=== PATIENT | female | born 1985 | race Caucasian/White ===

== ENCOUNTER → 2020-04-21 10:18 | Outpatient (CLI) | payer OTHER, SELFPAY ==
[2020-04-21 11:06] LABS: Hemoglobin 11.6 g/dL (12.0-16.0)
== END ==
PROVIDERS: PCP Family Medicine; Referring Provider Family Medicine; Visit Provider Family Medicine
DX: Z3A.26 26 weeks gestation of pregnancy (principal)
CPT/HCPCS: 36415; 85014; 85018

== ENCOUNTER → 2020-06-16 12:49 | Outpatient (CLI) | payer OTHER, SELFPAY ==
[2020-06-16 14:59] LABS: Hematocrit 33.8 % (36-46)
[2020-06-16 15:32] LABS: GTT (PREG) 1 Hour PP 50gm Dose 117 mg/dL (76-139)
== END ==
PROVIDERS: PCP Family Medicine; Referring Provider Family Medicine; Visit Provider Family Medicine
DX: D64.9 Anemia, unspecified (principal); Z3A.26 26 weeks gestation of pregnancy
CPT/HCPCS: 36415; 82950; 85014

== ENCOUNTER → 2020-06-23 13:31 | Outpatient (CLI) | payer OTHER, SELFPAY ==
--- NOTE | 2020-06-23 13:31 | DI.US.S_ITS ---
PROCEDURE: US OB LIMITED INDICATIONS: INCREASED SIZE FOR DATES OUTSIDE/PRIOR DATING DATA: Last menstrual period (LMP): 10/12/19. LMP-based estimated date of delivery (STEPHAN): 07/18/20. First dating scan (date and location): 12/06/19 Estimated date of delivery (STEPHAN) from first dating scan: 07/24/20. TECHNIQUE: Real-time scanning was performed of the fetus, with image documentation and biometric measurements. Endovaginal scanning: Not needed COMPARISON: None. FINDINGS: General: A single living intrauterine gestation is present. Presentation: Vertex. Placenta: Placental position is anterior , without previa. Amniotic fluid index: 14.5 cm, normal range is 5-24 cm. heart rate: 155 beats per minute. Maternal cervical canal: 4.0 cm long. Normal lower limit is 2.5 cm. biometrics: Biparietal diameter: 8.8 cm, 35 weeks 3 days Head circumference: 31.5 cm, 35 weeks 3 days Abdominal circumference: 31.4 cm, 35 weeks 2 days Femur length: 6.9 cm, 35 weeks 3 days Estimated gestational age from initial scan: 35 weeks 4 days. Composite gestational age from present scan: 35 weeks 3 days Estimated weight and percentile: 2650 g, 42nd percentile Measurement variability for biometric dating: +/- 7 days from 14 weeks to 15 weeks 6 days gestation, +/- 10 days from 16 weeks to 21 weeks 6 days gestation, +/- 2 weeks from 22 weeks to 27 weeks 6 days gestation, +/- 3 weeks for 28 weeks gestation or later. weight reference: 4500 g or EFW >90/95% is considered macrosomia or large for gestational age. EFW <10% is small for gestational age. EFW 5% or less is considered intra-uterine growth restriction. Other: Not applicable. IMPRESSION: Appropriate interval growth, no sign of macrosomia. Dictated by: Kris Call M.D. on 06/23/2020 at 14:44 Approved by: Kris Call M.D. on 06/23/2020 at 14:52
== END ==
PROVIDERS: PCP Family Medicine; Referring Provider Family Medicine; Visit Provider Family Medicine
DX: Z36.88 Encounter for antenatal screening for fetal macrosomia (principal); Z3A.35 35 weeks gestation of pregnancy
CPT/HCPCS: 76815

== ENCOUNTER → 2020-06-26 15:06 | Outpatient (CLI) | payer OTHER, SELFPAY ==
[2020-06-27 16:55] LABS: Strep Grp B PCR NEG for Grp B Strep
== END ==
PROVIDERS: PCP Family Medicine; Visit Provider Family Medicine
DX: Z34.83 Encounter for supervision of other normal pregnancy, third trimester (principal); Z3A.36 36 weeks gestation of pregnancy
CPT/HCPCS: 87653

== ENCOUNTER 2020-07-24 08:42 | Outpatient (CLI) | payer OTHER, SELFPAY ==
--- NOTE | 2020-07-24 13:13 | PM.OBTRLD ---
Visit Information Visit Information Date of evaluation: 07/24/20 Primary OB Provider: Gagan Chapin On-call OB Provider: Ilene Kessler Reason for Evaluation: Yes rule out labor Vital Signs Vital Signs: Temperature 98.6? blood pressure 121/69 heart rate 78 PFSH Medical History (Updated 07/24/20 @ 13:15 by Ilene Kessler DO) Constipation Surgical History H/O colonoscopy (~2004) History of wisdom tooth extraction (~2016) Family History (Updated 04/07/20 @ 10:30 by Marianela Wilkerson RN) Mother Hypertension Father Unknown whether patient has any health problems Family estrangement Grandfather Cancer Stomach cancer Grandmother Stroke Hypertension Grandfather Unknown whether patient has any health problems Family estrangement Grandmother Unknown whether patient has any health problems Family estrangement Family/Other Diabetes mellitus Hypertension Social History marital status: household members: spouse lives independently: Yes pets and animals: Yes (X 4 dogs and Guinea Pig) education level: college (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 needs: No Smoking Status: Former smoker (Stopped 15 years ago) Tobacco: How many years used: 3 second hand exposure: No alcohol intake: former (pre- : occasional ) substance use type: does not use Evaluation Evaluation Baseline heart rate: 120 Variability: Moderate (11-25) monitor accelerations: Present monitor decelerations: Absent Contraction Frequency (minutes): 3 Uterine Contraction Intensity: Moderate Category of Tracing: Reactive Cervical dilation (cm): 1 Cervical effacement (%): 75 station: -2 Diagnosis, Plan/Disposition Final Diagnosis (1) 40 weeks gestation of : Status: Acute Plan/Disposition Plan: 35 yo at 40 weeks with regular contractions. SVE similar to last check in clinic. Patient will walk for 1-2 hours and return to the center. OB Disposition: home
== END 2020-07-24 09:56 | disposition home or self-care (01) ==
LOC: LABOR 09:53 → OB 07-25 11:33
PROVIDERS: PCP Family Medicine; Referring Provider Family Medicine; Visit Provider Family Medicine
DX: Z34.03 Encounter for supervision of normal first pregnancy, third trimester (principal); Z3A.40 40 weeks gestation of pregnancy
CPT/HCPCS: 59025; G0378; G0379

== ENCOUNTER 2020-07-24 13:42 | Outpatient (CLI) | payer OTHER, SELFPAY | END 2020-07-24 14:35 | disposition home or self-care (01) | LOC: LABOR 14:10 → OB 07-25 11:33 | PROVIDERS: PCP Family Medicine; Referring Provider Family Medicine; Visit Provider Family Medicine | DX: Z34.03 Encounter for supervision of normal first pregnancy, third trimester (principal); Z3A.40 40 weeks gestation of pregnancy | CPT/HCPCS: 59025; G0378; G0379 ==

== ENCOUNTER 2020-07-25 10:53 | Inpatient (IN) | payer OTHER, SELFPAY ==
[2020-07-25] MEDS: LACTATED RINGERS 1,000 ML 100 ML IV ×3 (12:00→17:05)
[2020-07-25 12:16] LABS: Add Manual Diff / Slide Review NO; Basophils Absolute Auto 100 /uL (0-100); Basophils Percent Auto 0.8 % (0-2); Eosinophils Absolute Auto 0 /uL (0-450); Eosinophils Percent Auto 0.3 % (2-4); Hematocrit 36.5 % (36-46); Hemoglobin 12.7 g/dL (12.0-16.0); Lymphocytes Absolute Auto 1300 /uL (1100-4500); Lymphocytes Percent Auto 9.3 % (25-40); Mean Corpuscular HGB Conc 34.7 % (30-36); Mean Corpuscular Hemoglobin 31.4 PG (26-34); Mean Corpuscular Volume 90.4 fL (80-100); Monocytes Absolute Auto 800 /uL (0-900); Neutrophils Absolute Auto 11200 /uL (1500-7000); Neutrophils Percent Auto 83.6 % (50-75); Platelet Count 219 X10^3/uL (150-400); Red Blood Cell Count 4.04 X10^6/uL (4.0-5.2); Red Cell Distribution Width 13.1 % (11.6-14.8); White Blood Cell Count 13.4 X10^3/uL (4.5-11.0)
[2020-07-25 12:30] LABS: COVID19 -Nasal RAPID Negative (Negative)
--- NOTE | 2020-07-25 12:59 | P.HPOB_ITS ---
OB HPI Date/Time Date of admission: 07/25/20 Date Patient Seen: 07/25/20 Time Patient Seen: 12:59 History of Present Condition Chief complaint: NST : 2 Para: 0 Estimated Date of Delivery: 07/24/20 Estimated Gestational Age (weeks): 40-1/7 Narrative: Alanna Yarbrough is a 35 year old female G2 para 0 with an estimated due date 07/24/2020 consistent with ultrasound and LMP. Patient comes in to the labor and delivery floor in active labor. Patient states she has been rosi over the last 24-48 hours. Patient was in the center a couple of times yesterday with contractions intermittently and now have progressed to more regular contractions with uncomfortableness. Patient has had no fevers chills no loss of fluid. She has had good baby movement. Patient has had no vaginal discharge or bleeding. She has been hydrating well but not eating a whole lot. She says her contractions are low in her pelvis and around her back. There moderate to severe and comfortable level. Patient has had no significant worsening of her edema no headaches no blurry vision. History of Present care: good care Dating criteria: LMP confirmed by 1st trimester US Obstetrical complications: none Medical complications: none Preadmission Labs Blood type: O (+) positive -: Antibody screen: negative, Cystic fibrosis screen: unknown, GBS status: negative, HBsAG: negative, HIV: negative, HSV 1: unknown, HSV 2: unknown and RPR/VDLR: negative -: Chlamydia screen: not detected and Gonorrhea screen: not detected HCAB: negative Integrated screen: Within normal limits 1 hr GTT: 117 Narrative: COVID negative Evaluation Evaluation Laboratory results: Laboratory Tests 07/25/20 07/25/20 11:49 11:49 WBC 13.4 H RBC 4.04 Hgb 12.7 Hct 36.5 MCV 90.4 MCH 31.4 MCHC 34.7 RDW 13.1 Plt Count 219 Neut % (Auto) 83.6 H Lymph % (Auto) 9.3 L [place] % (Auto) 6.0 Eos % (Auto) 0.3 L Baso % (Auto) 0.8 Neut # (Auto) 44417 H Lymph # (Auto) 1300 [place] # (Auto) 800 Eos # (Auto) 0 Baso # (Auto) 100 COVID-19 PCR Negative PFSH Medical History Constipation Surgical History H/O colonoscopy (~2004) History of wisdom tooth extraction (~2016) Family History Mother Hypertension Father Unknown whether patient has any health problems Family estrangement Grandfather Cancer Stomach cancer Grandmother Stroke Hypertension Grandfather Unknown whether patient has any health problems Family estrangement Grandmother Unknown whether patient has any health problems Family estrangement Family/Other Diabetes mellitus Hypertension Social History marital status: household members: spouse lives independently: Yes pets and animals: Yes (X 4 dogs and Guinea Pig) education level: college (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 General: Alert no apparent distress. Affect is appropriate. Rosi it is uncomfortable. HEENT: Neck is supple without lymphadenopathy pupils equal round and reactive. Cardio: S1-S2 regular rate and rhythm. Respiratory: Lungs clear to auscultation. Abdomen: Gravid. Extremities: Normal deep tendon reflexes trace edema. [place]: Rosi every 5 minutes 60 sec contraction moderate in intensity. heart tones: Category 1 tracing heart tones 130 Objective Labs Result Diagrams: 07/25/20 11:49 Labs: Laboratory Results - last 24 hr 07/25/20 07/25/20 11:49 11:49 WBC 13.4 H RBC 4.04 Hgb 12.7 Hct 36.5 MCV 90.4 MCH 31.4 MCHC 34.7 RDW 13.1 Plt Count 219 Neut % (Auto) 83.6 H Lymph % (Auto) 9.3 L [place] % (Auto) 6.0 Eos % (Auto) 0.3 L Baso % (Auto) 0.8 Neut # (Auto) 37878 H Lymph # (Auto) 1300 [place] # (Auto) 800 Eos # (Auto) 0 Baso # (Auto) 100 COVID-19 PCR Negative Assessment and Plan Assessment and Plan Assessment and Plan narrative: 35-year-old G2 para 0 40 weeks 1 day gestational age consistent with LMP and ultrasound comes in today with active labor. Patient's contractions are uncomfortable. Vital signs are stable and patient is afebrile. Patient is intact without loss of amniotic fluid. Her GBS status is negative. Patient's cervical exam shows she has 5-6 cm 90% effaced -2 station. Patient is requesting epidural. care orders were written for. Patient will have a COVID test hemoglobin hematocrit be given an IV fluid bolus. Once these tests are back. Will proceed with an epidural. consents were obtained and signed orders were written for. Proceed with expectant management.
[2020-07-25] MEDS: FENT 2MCG/ML BUPIV 0.125% EPI 200 MCG/100 ML PLAST..BAG 12 MCG EPIDURAL (13:39)
[2020-07-25 14:31] VITALS: BP 109/67
[2020-07-25] MEDS: OXYTOCIN PREMIX 30 UNIT/500 ML PLAST..BAG IV (14:44)
--- NOTE | 2020-07-25 17:55 | PM.OBPNLAB ---
Date/Time Date Patient Seen: 07/25/20 Time Patient Seen: 17:00 Pain Control Pain control: tolerating well and epidural Pelvic Exam Dilation (cm): 9 station: -1 Amniotic membrane status: Leaking Contractions Contractions on admission: regular Monitor mode: External Pitocin rate (mU/min): 6 Contraction frequency (min): 4 Contraction duration (min): 60 Contraction pattern: Regular Status status: Category l Monitor Accelerations: Present Monitor Decelerations: Absent Monitor Variability: Moderate Assessment and Plan Assessment: active labor Plan: continuous present management Comments: Doing well. Made good progress. Decreased Pitocin is contractions are a little bit close together. Category 1 heart tracing. Continue expectant management
--- NOTE | 2020-07-25 21:40 | PM.OBPNLAB ---
Date/Time Date Patient Seen: 07/25/20 Time Patient Seen: 21:40 Pain Control Pain control: tolerating well Pelvic Exam Dilation (cm): 10 Effacement (%): 100 station: +1 Amniotic membrane status: Leaking Contractions Monitor mode: External Contraction frequency (min): 4 Contraction pattern: Regular Status status: Category ll Monitor Accelerations: Present Monitor Decelerations: Variable Monitor Variability: Moderate Assessment and Plan Assessment: active labor Comments: Continue to push. Monitor closely for baby descent. heart tones 130-141 tends with pushing. Hopefully we continue to make good progress. If not may have to use vacuum or forceps.
--- NOTE | 2020-07-25 23:09 | PM.PROC.1 ---
Procedures Date/Time Date of procedure: 07/25/20 Time of procedure: 23:09 General Procedure description: Delivery summary Stage I of labor. Approximately 8 hours. Patient presented to Labor and delivery floor rosi. Dilated 4-5 cm -2 station intact. Patient had normal vital signs and temperature when she came in. Patient's contractions were moderate to severe in discomfort and patient requesting epidural. Vital signs were stable afebrile. labs chart and ultrasounds were reviewed. During stage I of labor patient made good progress of labor. She received epidural with great anesthetic results. She had Pitocin augmentation. She had category 1 tracing during most of stage I of labor with some occasional says it is category 2 tracing. Patient the had 1 episode where heart rate dropped after position changes a at 9 cm. Where the Pitocin was. She was given a fluid bolus and continue non-rebreather oxygen. Baby's heart rate rebounded afterwards and did well. Patient's GBS status was negative. She had a Alfredo catheter placed after the epidural was placed. Patient made good progress from 4-9 cm. Stage II of labor approximately 2 hours. Category 1 and category 2 tracing during stage II. At pushing patient made good descent through the canal from -1 to +3 station. At the delivery of the baby's head. Baby was delivered spontaneously in the occiput posterior position. Baby had no nuchal cord was delivered immediately after without any shoulder difficulty. Baby was placed on mother's abdomen had spontaneous cry. Delayed cord clamping was done. Cord was cut and transected by father was three-vessel cord. Mom had good anesthetic results during stage II of labor. Patient has some mild Pitocin to help with contractions during stage II. There was some variable decelerations. And early decelerations. Stage III of labor approximately 5 minutes. Patient delivered intact placenta with three-vessel cord. Patient had a small second-degree midline tear that was repaired in the normal fashion with the good results. Afterwards mom and baby were resting comfortably. Expectant of the cervix showed no cervical laceration. Bleeding was anticipated at 200 cc. Mom was given Pitocin through the IV. To complete the 20 units bag.
[2020-07-26] MEDS: LANOLIN OINT 7 GM 1 APPLIC TOP (03:07)
[2020-07-26] MEDS: DERMOPLAST SPRAY 20% 60 ML 1 SPRAY TOP (03:07)
[2020-07-26] MEDS: IBUPROFEN 600 MG TABLET PO ×4 (03:08→23:28)
[2020-07-26 06:20] LABS: Hematocrit 30.9 % (36-46); Hemoglobin 10.6 g/dL (12.0-16.0)
--- NOTE | 2020-07-26 08:54 | PM.PN.1 ---
Subjective Subjective Date Patient Seen: 07/26/20 Time Patient Seen: 08:54 Interval history: day 1. Status post vaginal delivery. Patient doing well. Was able to ambulate and shower. Bleeding as anticipated hemoglobin hematocrit is stable. Tolerating diet. Vital signs are stable. No lightheaded and dizziness. No fever no chills. Exam Narrative Exam Narrative: General: Alert no apparent distress. Affect is appropriate. . HEENT: Neck is supple without lymphadenopathy pupils equal round and reactive. Cardio: S1-S2 regular rate and rhythm. Respiratory: Lungs clear to auscultation. Abdomen: Uterus firm. Extremities: Normal deep tendon reflexes trace edema. Objective Labs Result Diagrams: 07/26/20 06:05 Labs: Laboratory Results - last 24 hr 07/25/20 07/25/20 07/25/20 11:49 11:49 11:49 WBC 13.4 H RBC 4.04 Hgb 12.7 Hct 36.5 MCV 90.4 MCH 31.4 MCHC 34.7 RDW 13.1 Plt Count 219 Neut % (Auto) 83.6 H Lymph % (Auto) 9.3 L [place] % (Auto) 6.0 Eos % (Auto) 0.3 L Baso % (Auto) 0.8 Neut # (Auto) 91026 H Lymph # (Auto) 1300 [place] # (Auto) 800 Eos # (Auto) 0 Baso # (Auto) 100 COVID-19 PCR Negative Blood Type O Positive Antibody Screen Negative 07/26/20 06:05 WBC RBC Hgb 10.6 L Hct 30.9 L MCV MCH MCHC RDW Plt Count Neut % (Auto) Lymph % (Auto) [place] % (Auto) Eos % (Auto) Baso % (Auto) Neut # (Auto) Lymph # (Auto) [place] # (Auto) Eos # (Auto) Baso # (Auto) COVID-19 PCR Blood Type Antibody Screen [facility] Medical History Constipation Surgical History H/O colonoscopy (~2004) History of wisdom tooth extraction (~2016) Family History Mother Hypertension Father Unknown whether patient has any health problems Family estrangement Grandfather Cancer Stomach cancer Grandmother Stroke Hypertension Grandfather Unknown whether patient has any health problems Family estrangement Grandmother Unknown whether patient has any health problems Family estrangement Family/Other Diabetes mellitus Hypertension Social History marital status: household members: spouse lives independently: Yes pets and animals: Yes (X 4 dogs and Guinea Pig) education level: college (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 Status post vaginal delivery. Pain well controlled. Continue with Tylenol and ibuprofen. Bowels. Continue with Colace stool softener. Bleeding hemoglobin hematocrit stable. Uterus is firm. As anticipated. Diet and patient tolerating diet. Plan. Ambulate DC Hep-Lock.
[2020-07-26] MEDS: DOCUSATE 100 MG CAPSULE PO ×2 (10:11→20:15)
[2020-07-26] MEDS: PRENATAL VIT,CALC/IRON/FOLIC 1 TABLET 1 TAB PO (10:11)
[2020-07-26 20:14] VITALS: TEMP 37.4
[2020-07-26] MEDS: HYDROCODONE/ACET 5/325 TABLET 1 TAB PO ×2 (20:14→23:29)
[2020-07-27 05:19] VITALS: TEMP 36.6
[2020-07-27] MEDS: HYDROCODONE/ACET 5/325 TABLET 1 TAB PO (05:19)
[2020-07-27 05:49] VITALS: TEMP 36.6
[2020-07-27] MEDS: PRENATAL VIT,CALC/IRON/FOLIC 1 TABLET 1 TAB PO (08:55)
[2020-07-27] MEDS: ACETAMINOPHEN 325 MG TABLET 650 MG PO (08:55)
[2020-07-27] MEDS: DOCUSATE 100 MG CAPSULE PO (08:55)
[2020-07-27] MEDS: IBUPROFEN 600 MG TABLET PO (08:55)
--- NOTE | 2020-07-27 09:24 | PM.DS.1 ---
History of Present Illness History of Present Illness Chief complaint: NST Discharge Providers Provider Date of admission: 07/25/20 10:53 Discharge Date: 07/27/20 Primary care physician: Gagan Chapin MD Consults: 07/26/20 23:06 Consult to Health Insurance Agent Routine Comment: Discharge provider: Gagan Chapin MD Summary Hospital Course Discharge Diagnosis: Delivery of viable male Hospital Course: Routine post delivery care Exam Vital Signs (past 8 hours): - 07/27/20 05:19 07/27/20 05:49 Temperature 97.9 F 97.9 F Narrative Exam Narrative: General: Alert no apparent distress. Affect is appropriate. Greg it is uncomfortable. HEENT: Neck is supple without lymphadenopathy pupils equal round and reactive. Cardio: S1-S2 regular rate and rhythm. Respiratory: Lungs clear to auscultation. Abdomen: Incision clean dry and intact. Extremities: Normal deep tendon reflexes trace edema. Objective Labs Result Diagrams: 07/26/20 06:05 [facility] Medical History Constipation Surgical History H/O colonoscopy (~2004) History of wisdom tooth extraction (~2016) Family History Mother Hypertension Father Unknown whether patient has any health problems Family estrangement Grandfather Cancer Stomach cancer Grandmother Stroke Hypertension Grandfather Unknown whether patient has any health problems Family estrangement Grandmother Unknown whether patient has any health problems Family estrangement Family/Other Diabetes mellitus Hypertension Social History marital status: household members: spouse lives independently: Yes pets and animals: Yes (X 4 dogs and Guinea Pig) education level: college (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 needs: No Smoking Status: Never smoker Tobacco: How many years used: 3 second hand exposure: No alcohol intake: former (pre- : occasional ) substance use type: does not use Discharge Plan Discharge Plan Patient Disposition: Home Discharge orders & Medications Prescriptions: New docusate sodium [DOK] 100 mg Capsule 100 mg PO BID Qty: 20 RF: 0 ibuprofen 600 mg Tablet 600 mg PO Q6HR PRN (Reason: Fever/Mild Pain (1-3)) Qty: 30 RF: 0 lactulose 10 gram packet 20 g PO BID Qty: 30 RF: 3 Continued prenat.vits,maricruz,[id number] Tablet 1 tab PO DAILY RF: 0 Follow up/Referrals: Gagan Chapin MD [Primary Care Provider] - Diet/Activity/Treatments Diet: Diet as Tolerated Visit Report/Discharge Packet Visit Report Forms: Patient Portal/API Discharge Data Primary Care Provider: Gagan Chapin
[2020-07-27 09:45] VITALS: BP 109/67; PULSE 78; RESP 18; TEMP 36.6
== END 2020-07-27 11:00 | disposition home or self-care (01) | DRG 807 ==
PROVIDERS: Admitting Provider Family Medicine; PCP Family Medicine; Referring Provider Family Medicine; Visit Provider Family Medicine
DX: O76 Abnormality in fetal heart rate and rhythm complicating labor and delivery (principal); Z37.0 Single live birth; O70.1 Second degree perineal laceration during delivery; Z3A.40 40 weeks gestation of pregnancy; Z11.59 Encounter for screening for other viral diseases
CPT/HCPCS: 01967; 36415; 59025; 59050; 59410; 85014; 85018; 85025; 86850; 86900; 86901; 87635; G0379; J2590

== ENCOUNTER → 2020-09-08 12:47 | Outpatient (CLI) | payer OTHER, SELFPAY | PROVIDERS: PCP Family Medicine; Referring Provider Family Medicine; Visit Provider Family Medicine | DX: D57.3 Sickle-cell trait (principal) | CPT/HCPCS: 36415; 83021 ==

== ENCOUNTER → 2022-12-07 08:26 | Outpatient (CLI) | payer OTHER, SELFPAY ==
--- NOTE | 2022-12-07 08:28 | DI.US.S_ITS ---
PROCEDURE: US ABDOMEN COMPLETE INDICATIONS: ABDOMINAL PAIN TECHNIQUE: Real-time scanning was performed of the abdominal and retroperitoneal organs, with image documentation. COMPARISON: None. FINDINGS: Liver: Liver is normal in size and homogeneous in echotexture. Gallbladder: No findings of gallstones or sludge are seen. The gallbladder wall is not thickened, measuring 3 mm or less. No specific pericholecystic fluid is seen. The sonographic Botello sign is negative. Biliary ducts: Intrahepatic bile ducts are non-dilated. Extrahepatic bile duct caliber measures 2-3 mm. Normal is 6-7 mm or less in diameter, or 10 mm or less post-cholecystectomy. Pancreas: Visualized portions of the pancreas are sonographically normal. Spleen: Spleen is normal in size. Scattered areas of calcification can be seen within the spleen. Kidneys: Kidneys are normal in size and echotexture. Right kidney measures 10.6 cm long; left kidney measures 10.2 cm long. No hydronephrosis or nephrolithiasis. No solid masses. An apparent left kidney dromedary hump can be seen. Aorta: Visualized aorta is normal in caliber at less than 3 cm. Iliacs: Proximal common iliac arteries are normal in caliber at less than 2.5 cm. IVC: Intrahepatic inferior vena cava is patent. Miscellaneous: No free abdominal fluid. IMPRESSION: No imaging explanation is found for this patient's presenting symptoms. The gallbladder demonstrates a normal sonographic appearance. No biliary dilatation is seen. Additional findings: Calcifications, likely related to arterial calcification Left kidney dromedary hump Dictated by: Pedro Camilo M.D. on 12/07/2022 at 10:50 Approved by: Pedro Camilo M.D. on 12/07/2022 at 10:51
== END ==
PROVIDERS: PCP Family Medicine; Referring Provider Family Medicine; Visit Provider Family Medicine
DX: R10.9 Unspecified abdominal pain (principal)
CPT/HCPCS: 76700

== ENCOUNTER → 2024-05-08 11:09 | Outpatient (CLI) | payer OTHER, SELFPAY ==
--- NOTE | 2024-05-08 11:10 | DI.RAD.S_ITS ---
PROCEDURE: XR CHEST 2V INDICATIONS: Preoperative evaluation. TECHNIQUE: 2 views of the chest were acquired. COMPARISON: None. FINDINGS: Several 1 mm-3 mm suspected calcified granulomata are noted in both lower lobes. Lungs and pleura: Lungs are otherwise clear. No pleural effusions or pneumothorax. Mediastinum: Mediastinal contours are normal. Heart size is normal. Bones and chest wall: No suspicious bony abnormalities. IMPRESSION: Bilateral lower lobe suspected calcified granulomata otherwise negative chest. Dictated by: Kobi Huang M.D. on 05/08/2024 at 13:17 Approved by: Kobi Huang M.D. on 05/08/2024 at 13:25
[2024-05-08 12:32] LABS: Add Manual Diff / Slide Review NO; Basophils Absolute Auto 0 /uL (0-100); Basophils Percent Auto 0.5 % (0-2); Eosinophils Absolute Auto 0 /uL (0-450); Eosinophils Percent Auto 0.5 % (2-4); Hemoglobin 13.6 g/dL (12.0-16.0); Lymphocytes Absolute Auto 1500 /uL (1100-4500); Lymphocytes Percent Auto 17.8 % (25-40); Mean Corpuscular Hemoglobin 31.7 PG (26-34); Mean Corpuscular Volume 90.6 fL (80-100); Monocytes Absolute Auto 500 /uL (0-900); Monocytes Percent Auto 6.1 % (3-14); Neutrophils Absolute Auto 6300 /uL (1500-7000); Neutrophils Percent Auto 75.1 % (50-75); Platelet Count 250 X10^3/uL (150-400); Red Cell Distribution Width 13.2 % (11.6-14.8); White Blood Cell Count 8.3 X10^3/uL (4.5-11.0)
[2024-05-08 12:45] LABS: Prothrombin Time 10.9 SECONDS (9.4-12.5)
[2024-05-08 14:30] LABS: BUN Creatinine Ratio 25.4 (6-22); Blood Urea Nitrogen 15 mg/dL (7-17); Calcium 9.1 mg/dL (8.4-10.2); Carbon Dioxide 25 mmol/L (22-32); Chloride 100 mmol/L (98-107); Estimated Glomerular Filt Rate > 60 mL/min (>60); Glucose 83 mg/dL (70-100); HEMOLYSIS < 15 (0-50); Potassium 3.9 mmol/L (3.4-5.1); Sodium 133 mmol/L (137-145)
[2024-05-08 15:07] LABS: Hemoglobin A1C% w Est Avg Glu 4.7 % (4.0-6.0)
== END ==
PROVIDERS: PCP Family Medicine; Referring Provider Family Medicine; Visit Provider Family Medicine
DX: Z01.818 Encounter for other preprocedural examination (principal)
CPT/HCPCS: 36415; 71046; 80048; 83036; 85025; 85610

== ENCOUNTER → 2024-09-06 10:29 | Outpatient (CLI) | payer OTHER, SELFPAY | PROVIDERS: PCP Family Medicine; Referring Provider Family Medicine; Visit Provider Surgery | DX: T81.89XA Other complications of procedures, not elsewhere classified, initial encounter (principal); L98.8 Other specified disorders of the skin and subcutaneous tissue; S31.109A Unspecified open wound of abdominal wall, unspecified quadrant without penetration into peritoneal cavity, initial encounter | CPT/HCPCS: 87070; 87075; 87077; 87186; 87205; 99203; 99214 ==

== ENCOUNTER → 2024-09-11 11:39 | Outpatient (CLI) | payer OTHER, SELFPAY ==
--- NOTE | 2024-09-11 12:37 | DI.CT.S_ITS ---
PROCEDURE: CT ABDOMEN PELVIS W CON INDICATIONS: eval for ABD wall abscess TECHNIQUE: After the administration of intravenous contrast, axial sections acquired from the lung bases to the pubic symphysis. Coronal and sagittal reformats were performed. For radiation dose reduction, the following was used: automated exposure control, adjustment of mA and/or kV according to patient size. COMPARISON: None. FINDINGS: Image quality: Diagnostic. Lower Chest: Bilateral breast implants are intact. Bilateral lung bases are clear. Heart size is normal. ABDOMEN: Liver: No solid mass. Moderate hepatic steatosis is seen. Gallbladder: No radiopaque gallstones or wall thickening. Biliary ducts: No biliary dilation. Pancreas: No ductal dilation. Spleen: Size is within normal limits. Adrenal Glands: No adrenal nodules. Kidneys and Ureters: No hydronephrosis. No solid mass. No complex renal cystic lesion which requires follow up. Stomach and Bowel: Normal colonic caliber, without significant wall thickening. No peritoneal abscess collection. Peritoneum: No abnormal intraperitoneal fluid. No free air. Ventral Wall: Small umbilical hernia is seen containing fat only. Significant fat stranding in anterior abdominal wall with left anterior abdominal wall open wound and small amount of subcutaneous emphysema along anterior abdominal wall. No discrete drainable peripherally enhancing fluid collection. Abdominal Nodes: No retroperitoneal or mesenteric adenopathy by size criteria. Vessels: Aorta and inferior vena cava are normal in size. PELVIS: Pelvic Organs: Simple appearing right ovarian cyst is seen measures 2.7 x 2.8 cm in size. Bladder: No bladder wall thickening, accounting for underdistention. Pelvic Nodes: No enlarged lymph nodes. Miscellaneous: No inguinal hernias are seen. Bones: No aggressive osseous abnormality. IMPRESSION: 1. Open wound in left anterior abdominal wall with significant subcutaneous fat stranding and subcutaneous emphysema along anterior abdominal wall consistent with cellulitis. No discrete drainable abscess collection. 2. No peritoneal free fluid or free air. No peritoneal abscess collection. No abnormal bowel wall thickening. No bowel obstruction. 3. 2.7 x 2.8 cm simple appearing right ovarian cyst. Dictated by: Simón Cornejo M.D. on 09/11/2024 at 18:38 Approved by: Simón Cornejo M.D. on 09/11/2024 at 22:12
== END ==
PROVIDERS: PCP Family Medicine; Referring Provider Surgery; Visit Provider Surgery
DX: S31.101A Unspecified open wound of abdominal wall, left upper quadrant without penetration into peritoneal cavity, initial encounter (principal); N83.291 Other ovarian cyst, right side; K76.0 Fatty (change of) liver, not elsewhere classified; K42.9 Umbilical hernia without obstruction or gangrene; Z98.82 Breast implant status; X58.XXXA Exposure to other specified factors, initial encounter
CPT/HCPCS: 74177; Q9967

== ENCOUNTER → 2024-09-13 11:29 | Outpatient (CLI) | payer OTHER, SELFPAY | PROVIDERS: PCP Family Medicine; Referring Provider Family Medicine; Visit Provider Surgery | DX: T81.31XA Disruption of external operation (surgical) wound, not elsewhere classified, initial encounter (principal); L03.311 Cellulitis of abdominal wall | CPT/HCPCS: 97607; 99213 ==

== ENCOUNTER → 2024-09-17 14:35 | Outpatient (CLI) | payer OTHER, SELFPAY | LOC: WC 14:51 | PROVIDERS: PCP Family Medicine; Referring Provider Family Medicine; Visit Provider Surgery | DX: S31.104A Unspecified open wound of abdominal wall, left lower quadrant without penetration into peritoneal cavity, initial encounter (principal); S31.109A Unspecified open wound of abdominal wall, unspecified quadrant without penetration into peritoneal cavity, initial encounter | CPT/HCPCS: 97607 ==

== ENCOUNTER → 2024-09-20 09:39 | Outpatient (CLI) | payer OTHER, SELFPAY | LOC: WC 09:40 | PROVIDERS: PCP Family Medicine; Referring Provider Family Medicine; Visit Provider Surgery | DX: T81.31XA Disruption of external operation (surgical) wound, not elsewhere classified, initial encounter (principal); S31.104A Unspecified open wound of abdominal wall, left lower quadrant without penetration into peritoneal cavity, initial encounter; S31.109A Unspecified open wound of abdominal wall, unspecified quadrant without penetration into peritoneal cavity, initial encounter | CPT/HCPCS: 97607; 99213 ==

== ENCOUNTER → 2024-09-27 09:40 | Outpatient (CLI) | payer OTHER, SELFPAY | LOC: WC 09:49 | PROVIDERS: PCP Family Medicine; Referring Provider Family Medicine; Visit Provider Surgery | DX: T81.31XA Disruption of external operation (surgical) wound, not elsewhere classified, initial encounter (principal); S31.104A Unspecified open wound of abdominal wall, left lower quadrant without penetration into peritoneal cavity, initial encounter | CPT/HCPCS: 97607; 99213 ==

== ENCOUNTER 2024-09-30 00:01 | Emergency (ER) | payer OTHER, SELFPAY ==
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
[2024-09-30 00:08] VITALS: BP 109/66; PULSE 81; RESP 16; TEMP 36.6; O2SAT 98; BMI 25.7
== END 2024-09-30 01:14 | disposition home or self-care (01) ==
PROVIDERS: Emergency Provider Student in an Organized Health Care Education/Training Program; PCP Family Medicine
DX: Z48.01 Encounter for change or removal of surgical wound dressing (principal)
CPT/HCPCS: 99281

== ENCOUNTER → 2024-10-01 09:50 | Outpatient (CLI) | payer OTHER, SELFPAY | LOC: WC 09:52 | PROVIDERS: PCP Family Medicine; Referring Provider Family Medicine; Visit Provider Surgery | DX: T81.89XA Other complications of procedures, not elsewhere classified, initial encounter (principal); S31.104A Unspecified open wound of abdominal wall, left lower quadrant without penetration into peritoneal cavity, initial encounter | CPT/HCPCS: 97607 ==

== ENCOUNTER → 2024-10-04 10:56 | Outpatient (CLI) | payer OTHER, SELFPAY | LOC: WC 10:57 | PROVIDERS: PCP Family Medicine; Referring Provider Family Medicine; Visit Provider Surgery | DX: S31.101A Unspecified open wound of abdominal wall, left upper quadrant without penetration into peritoneal cavity, initial encounter (principal); T81.89XA Other complications of procedures, not elsewhere classified, initial encounter | CPT/HCPCS: 97607; 99213 ==

== ENCOUNTER → 2024-10-08 10:24 | Outpatient (CLI) | payer OTHER, SELFPAY | LOC: WC 10:36 | PROVIDERS: PCP Family Medicine; Referring Provider Family Medicine; Visit Provider Surgery | DX: T81.89XA Other complications of procedures, not elsewhere classified, initial encounter (principal); L98.8 Other specified disorders of the skin and subcutaneous tissue; S31.104A Unspecified open wound of abdominal wall, left lower quadrant without penetration into peritoneal cavity, initial encounter | CPT/HCPCS: 97607 ==

== ENCOUNTER → 2024-10-11 09:03 | Outpatient (CLI) | payer OTHER, SELFPAY | LOC: WC 09:05 | PROVIDERS: PCP Family Medicine; Referring Provider Family Medicine; Visit Provider Surgery | DX: T81.89XA Other complications of procedures, not elsewhere classified, initial encounter (principal); L98.8 Other specified disorders of the skin and subcutaneous tissue; S31.104A Unspecified open wound of abdominal wall, left lower quadrant without penetration into peritoneal cavity, initial encounter | CPT/HCPCS: 97607; 99213 ==

== ENCOUNTER → 2024-10-15 11:41 | Outpatient (CLI) | payer OTHER, SELFPAY | PROVIDERS: PCP Family Medicine; Referring Provider Family Medicine; Visit Provider Surgery | DX: S31.104A Unspecified open wound of abdominal wall, left lower quadrant without penetration into peritoneal cavity, initial encounter (principal); T81.89XA Other complications of procedures, not elsewhere classified, initial encounter | CPT/HCPCS: 97607 ==

== ENCOUNTER → 2024-10-18 10:50 | Outpatient (CLI) | payer OTHER, SELFPAY | PROVIDERS: PCP Family Medicine; Referring Provider Family Medicine; Visit Provider Surgery | DX: T81.31XA Disruption of external operation (surgical) wound, not elsewhere classified, initial encounter (principal); S31.104A Unspecified open wound of abdominal wall, left lower quadrant without penetration into peritoneal cavity, initial encounter | CPT/HCPCS: 97607; 99213 ==

== ENCOUNTER → 2024-10-24 09:46 | Outpatient (CLI) | payer OTHER, SELFPAY | PROVIDERS: PCP Family Medicine; Referring Provider Family Medicine; Visit Provider Surgery | DX: T81.31XA Disruption of external operation (surgical) wound, not elsewhere classified, initial encounter (principal); S31.104A Unspecified open wound of abdominal wall, left lower quadrant without penetration into peritoneal cavity, initial encounter | CPT/HCPCS: 97605; 99213 ==

== ENCOUNTER → 2024-10-31 09:47 | Outpatient (CLI) | payer OTHER, SELFPAY | PROVIDERS: PCP Family Medicine; Referring Provider Family Medicine; Visit Provider Surgery | DX: T81.89XA Other complications of procedures, not elsewhere classified, initial encounter (principal); L98.8 Other specified disorders of the skin and subcutaneous tissue; S31.104A Unspecified open wound of abdominal wall, left lower quadrant without penetration into peritoneal cavity, initial encounter | CPT/HCPCS: 97607; 99213 ==

== ENCOUNTER → 2024-11-07 09:10 | Outpatient (CLI) | payer OTHER, SELFPAY | PROVIDERS: PCP Family Medicine; Referring Provider Family Medicine; Visit Provider Surgery | DX: T81.31XA Disruption of external operation (surgical) wound, not elsewhere classified, initial encounter (principal); S31.104A Unspecified open wound of abdominal wall, left lower quadrant without penetration into peritoneal cavity, initial encounter | CPT/HCPCS: 97607; 99213 ==

== ENCOUNTER → 2024-11-14 09:15 | Outpatient (CLI) | payer OTHER, SELFPAY ==
--- NOTE | 2024-11-14 | OV.WND_ITS ---
PROGRESS NOTE DETAILS PATIENT NAME: DEBBY CUMMINGS PATIENT NUMBER: [id number] CLINICIAN: CASSY HICKMAN RN PATIENT DATE OF : 1985 PHYSICIAN / SILVER RECOVERY OPERATOR: WILLARD TONETUCKER PATIENT SUBJECTIVE CHIEF COMPLAINT THIS INFORMATION WAS OBTAINED FROM THE PATIENT. MY WOUND FEELS PRETTY GOOD. GENERAL NOTES ABD SURGICAL WOUND, SNAP IN PLACE. ALLERGIES NO KNOWN ALLERGIES HPI THIS INFORMATION WAS OBTAINED FROM THE PATIENT. THE FOLLOWING HPI ELEMENTS WERE DOCUMENTED FOR THE PATIENT'S WOUND: LOCATION: ABDOMEN DURATION: 08/23/24 CONTEXT: SURGICAL ASSOCIATED SIGNS AND SYMPTOMS: NONE THE PATIENT IS A 39-YEAR-OLD FEMALE WHO RETURNS TODAY FOR FOLLOW UP OF A SURGICAL WOUNDS ON THE ABDOMEN. SHE UNDERWENT AN ABDOMINOPLASTY IN [place] ON May. SHE DEVELOPED WOUND DEHISCENCE AND UNDERWENT DELAYED PRIMARY CLOSURE ON AUGUST 08, 2024. THE WOUND THEN BECAME INFECTED. CULTURES FROM July GREW E. COLI AND CULTURES FROM July GREW ENTEROCOCCUS FAECALIS. THE PATIENT WAS TREATED WITH A 14 DAY COURSE OF ERTAPENEM AND COMPLETED A COURSE OF ORAL AMPICILLIN ON August. THE WOUND DEHISCED AGAIN ON AUGUST 23, 2024 AND BEGAN DRAINING A LARGE AMOUNT OF FLUID. THE PATIENT WAS SEEN FOR THE 1ST TIME SEPTEMBER 06, 2024 AND STARTED ON DRESSING CHANGES WITH HYDROFERA BLUE AND CIPRO 500 MG P.O. B.I.D. X7 DAYS. SHE IS NOT CURRENTLY ON ANY ANTIBIOTIC THERAPY. SHE IS CURRENTLY RECEIVING NEGATIVE PRESSURE WOUND THERAPY USING A SNAP WITH COLLAGEN ONCE A WEEK. SHE DENIES HAVING ANY FEVER OR CHILLS NOR HAS SHE HAVING ANY PAIN OR DISCOMFORT. THE PATIENT REPORTS A GOOD APPETITE AND IS TAKING PROTEIN SUPPLEMENTS. SHE DENIES HAVING ANY OTHER RECENT CHANGES IN HER OVERALL HEALTH. CT SCAN OF THE ABDOMEN DID NOT SHOW ANY EVIDENCE FOR ABSCESS OR SEROMA. ON EXAM TODAY THE MEASUREMENTS ARE IMPROVED AND THE WOUND IS FILLING IN AND THERE IS LESS TUNNELING. THERE IS A NEW SATELLITE ULCER JUST MEDIAL WITH SOME HYPER GRANULAR TISSUE. LABS 09/11/24: CT SCAN OF THE ABDOMEN: OPEN WOUND IN LEFT ANTERIOR ABDOMINAL WALL WITH SIGNIFICANT SUBCUTANEOUS FAT STRANDING AND SUBCUTANEOUS EMPHYSEMA ALONG ANTERIOR ABDOMINAL WALL CONSISTENT WITH CELLULITIS. NO DISCRETE DRAINABLE ABSCESS COLLECTION. 09/06/24: CULTURES GREW MORGANELLA MORGANII 08/11/24: CULTURES GREW ENTEROCOCCUS FAECALIS 07/30/24: CULTURES GREW E COLI EMILIANODEBBY [id number] 1985 MEDICAL HISTORY THIS INFORMATION WAS OBTAINED FROM THE CHART, PATIENT. PATIENT HAS A MEDICAL HISTORY OF: CONSTIPATION SURGICAL HISTORY THIS INFORMATION WAS OBTAINED FROM THE CHART, PATIENT. PATIENT HAS A SURGICAL HISTORY OF: WISDOM TOOTH EXTRACTION- ABDOMINOPLASTY- OBJECTIVE VITALS HEIGHT/LENGTH: 64 IN (162.56 CM), WEIGHT: 159 LBS (72.27 KGS), BMI: 27.3, TEMPERATURE: 98.0 ?F (36.67 ?C), PULSE: 70 BPM, RESPIRATORY RATE: 16 BREATHS/MIN, BLOOD PRESSURE: 107/63 MMHG, PULSE OXIMETRY: 100 %. PHYSICAL EXAM CONSTITUTIONAL: VITAL SIGNS REVIEWED AND NOTED. WELL DEVELOPED, WELL NOURISHED, AND IN NO ACUTE DISTRESS. ALERT AND ORIENTED X3. RESPIRATORY: EVEN RESPIRATIONS WITHOUT USE OF ACCESSORY MUSCLES. NO INTERCOASTAL RETRACTIONS NOTED. EVEN AND NON LABORED RESPIRATION. INTEGUMENTARY (HAIR, SKIN): NO ERYTHEMA. NO SWELLING OR TENDERNESS. SEE WOUND ASSESSMENT. SKIN WARM AND DRY. NO RASHES. NEUROLOGICAL: DECREASED SENSATION LOWER ABDOMEN. PSYCHIATRIC: ORIENTATION TO TIME, PLACE AND PERSON: NORMAL AFFECT WITH NORMAL THOUGHT PATTERN. ADDITIONAL INFORMATION THE PATIENT'S POTENTIAL TO HEAL IS: GOOD. 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 INITIAL WOUND ENCOUNTER MEASUREMENTS ARE 0.9CM LENGTH X 1.6CM WIDTH X 0.3 CM DEPTH, WITH AN AREA OF 1.44 SQ CM AND A VOLUME OF 0.432 CUBIC CM.INITIAL WOUND ENCOUNTER PREVIOUS MEASUREMENTS FROM 11/07/2024 ARE 0.9CM LENGTH X 2CM WIDTH X 0.4CM DEPTH, WITH AN AREA OF 1.8 SQ CM AND A VOLUME OF 0.72 CUBIC CM. MUSCLE AND ADIPOSE ARE EXPOSED. NO TUNNELING HAS BEEN NOTED. NO SINUS TRACT HAS BEEN NOTED. NO UNDERMINING HAS BEEN NOTED. THERE IS A MODERATE AMOUNT OF SEROSANGUINEOUS DRAINAGE NOTED WHICH HAS NO ODOR. THE PATIENT REPORTS A WOUND PAIN OF LEVEL 0/10. THE WOUND MARGIN IS UNATTACHED WOUND BED HAS YES, BRIGHT RED, FIRM, GRANULATION, YES SLOUGH, NO ESCHAR, NO EPITHELIALIZATION. THE PERIWOUND SKIN EXHIBITED INDURATION. THE PERIWOUND SKIN DID NOT EXHIBIT BRAWNY INDURATION, EDEMA, EXCORIATION, CALLUS, CREPITUS, FLUCTUANCE, RASH, MACERATION, ATROPHIE KELLIE, CYANOSIS, ECCHYMOSIS, ERYTHEMA, HEMOSIDEROSIS, PALLOR AND RUBOR. THE PERIWOUND SKIN WAS NOT FRIABLE, DRY/SCALY AND MOIST. THE TEMPERATURE OF THE PERIWOUND SKIN IS WNL. PERIWOUND SKIN DOES NOT EXHIBIT SIGNS OR SYMPTOMS OF INFECTION. LOCAL PULSE IS N/A. GENERAL NOTES 30CC OF SEROSANGUENOUS DRAINAGE. SATELLITE 0.9X0.7X0.1 RIGHT SIDE OF WOUND DEBBY CUMMINGS [id number] 1985 ADDITIONAL INFORMATION OTHER DEVITALIZED TISSUE PRESENT: BIOFILM, FIBRIN ASSESSMENT ACTIVE PROBLEMS ICD-10 (ENCOUNTER DIAGNOSIS) S31.109D - UNSPECIFIED OPEN WOUND OF ABDOMINAL WALL, UNSPECIFIED QUADRANT WITHOUT PENETRATION INTO PERITONEAL CAVITY, SUBSEQUENT ENCOUNTER (ENCOUNTER DIAGNOSIS) T81.31XD - DISRUPTION OF EXTERNAL OPERATION (SURGICAL) WOUND, NOT ELSEWHERE CLASSIFIED, SUBSEQUENT ENCOUNTER GENERAL NOTES SURGICAL WOUND LOWER ABDOMEN CONTINUES TO IMPROVE, GOOD GRANULATION TISSUE, NEW SATELLITE ULCER THE FOLLOWING FACTORS HAVE BEEN IDENTIFIED THAT MAY AFFECT WOUND HEALING: DEVITALIZED TISSUE BIOFILM INFECTION RECENT SURGERY GOALS: REMOVED DEVITALIZED TISSUE REMOVE AND PREVENT BIOFILM IDENTIFY AND TREAT INFECTION RULE OUT ABDOMINAL WALL ABSCESS PROTEIN SUPPLEMENTATION WOUND CLOSURE PLAN: DISCONTINUE SNAP NEGATIVE PRESSURE WOUND THERAPY AND SWITCH TO DRESSING CHANGES WITH SILVER COLLAGEN, CONTINUE JENS, FOLLOW UP IN 1 WEEK FOR A RECHECK. PLAN WOUND ORDERS: WOUND #1 ABDOMEN - LLQ HAND HYGIENE HAND HYGIENE - WASH HANDS BEFORE AND AFTER WOUND CARE. CALL THE WOUND CENTER AT [phone] IF YOU HAVE SIGNS OR SYMPTOMS OF INFECTION, FEVER CHILLS OR SHAKES, INCREASED DRAINAGE, INCREASED ODOR OR UNUSUAL REDNESS. AFTER WOUND CENTER HOURS PLEASE NOTIFY YOUR PCP OR GO TO THE EMERGENCY ROOM. CLEANSER CLEANSE WOUND WITH NORMAL SALINE APPLY HYPOCHLOROUS ACID (VASHE OR SIMILAR) SOAKED 4X4 GAUZE TO WOUND BED FOR 5- 10 MINUTES AFTER PROVIDER HAS COMPLETED WOUND EXAM. REMOVE GAUZE AND DRESS WOUND ACCORDING TO DRESSING ORDERS. - IN CLINIC. DRESSING ORDERS APPLY DRESSING(S) AND SECURE WITH: - SILVER COLLAGEN TO WOUND BED OTHER WOUND DRESSING ORDERS OTHER ORDERS: - COVER WITH A BOARDER FOAM DRESSING. DRESSING CHANGE FREQUENCY CHANGE DRESSING EVERY OTHER DAY. SCRIBING ATTESTATION I ATTEST, THE NURSE, THAT I SCRIBED THESE ORDERS FOR THE WOUND CARE PROVIDER. DEBBY CUMMINGS [id number] 1985 ADDITIONAL ORDERS: FOLLOW-UP APPOINTMENTS RETURN APPOINTMENT 1 WEEK PROVIDER REVIEW AND ATTESTATION: REVIEWED AND EVALUATED LABS. REVIEWED HOSPITAL RECORDS. DISCUSSED THE PLAN OF CARE @ BEDSIDE WITH - THE PATIENT I AGREE AND ATTEST TO THE ABOVE INFORMATION PROVIDED FROM OTHER LICENSED PROFESSIONALS. GENERAL NOTES CONTINUE WITH INCREASING YOUR PROTEIN INTAKE. PLAN OF CARE: 01. ENSURE/ESTABLISH OPTIMAL BLOOD FLOW : - REVIEWED, NOT APPLICABLE 02. ASSESS FOR/TREAT INFECTION : - EVALUATE FOR SIGNS AND SYMPTOMS OF INFECTION AND DOCUMENT FINDINGS. STATUS: CONTINUED DATE: 11/14/2024 - OBTAIN CULTURE AND SENSITIVITY (CANDS) OR TISSUE CULTURE WHEN INFECTION IS SUSPECTED. (NOTE:) CONSIDER REPEATING WHEN WOUND HEALING <40% AFTER 30 DAYS OF WOUND CARE. STATUS: COMPLETED DATE: 10/24/2024 03. DEBRIDE WEEKLY OR MORE OFTEN PRN : - EVALUATE PATIENT IN CENTER WEEKLY TO ASSESS WOUND BED AND MARGINS FOR NEED FOR DEBRIDEMENT. STATUS: CONTINUED DATE: 11/14/2024 04. OPTIMIZE GLUCOSE CONTROL AND NUTRITION : - COMPLETE A NUTRITION RISK ASSESSMENT. STATUS: COMPLETED DATE: 10/24/2024 05. OFFLOADING PLAN : - REVIEWED, NOT APPLICABLE 06. OPTIMIZE HOST FACTORS: - ASSESS AND REVIEW PATIENT HISTORY FOR WOUND ETIOLOGY, CO-MORBID CONDITIONS, MEDICATION REGIME, AND SMOKING HISTORY. STATUS: COMPLETED DATE: 09/06/2024 07. DRESSING SELECTION : - CHOOSE TOPICAL TREATMENTS AND/OR DRESSING BASED ON WOUND TYPE AND APPEARANCE, PERIWOUND SKIN CONDITION, WOUND SIZE AND DEPTH, ANATOMIC LOCATION, VOLUME OF EXUDATE, EDEMA IN THE LOWER EXTREMITIES, AND RISK OR PRESENCE OF INFECTION. STATUS: CONTINUED DATE: 11/14/2024 08. ADVANCED MODALITIES : - SET TREATMENT GOALS ACCORDING TO PATIENT AND/OR CAREGIVER?S ABILITY/ COMPLIANCE. STATUS: CONTINUED DATE: 11/14/2024 09. FALL PREVENTION : - REVIEWED, NOT APPLICABLE 10. PAIN MANAGEMENT : - COMPLETE PAIN ASSESSMENT STATUS: COMPLETED DATE: 10/24/2024 11. MEASURABLE GOALS FOR WOUND HEALING AND/OR HYPERBARIC OXYGEN THERAPY : - DECREASE WOUND DIMENSIONS STATUS: CONTINUED DATE: 11/14/2024 12. DURATION/FREQUENCY OF WOUND CARE VISITS : - 1X WEEKLY FOR 30 DAYS STATUS: CONTINUED DATE: 11/14/2024 - 2X WEEKLY FOR 30 DAYS DEBBY CUMMINGS [id number] 1985 STATUS: COMPLETED DATE: 10/24/2024 ELECTRONIC SIGNATURE(S) SIGNED BY: DATE: SUE LAMAR MD 11/14/2024 15:50:59 (PT) ENTERED BY: SUE LAMAR MD ON 11/14/2024 12:42:50 (PT) DEBBY CUMMINGS [id number] 1985
== END ==
PROVIDERS: PCP Family Medicine; Referring Provider Family Medicine; Visit Provider Surgery
DX: T81.31XA Disruption of external operation (surgical) wound, not elsewhere classified, initial encounter (principal); S31.104A Unspecified open wound of abdominal wall, left lower quadrant without penetration into peritoneal cavity, initial encounter
CPT/HCPCS: 99212; 99213

== ENCOUNTER → 2024-11-21 09:13 | Outpatient (CLI) | payer OTHER, SELFPAY | PROVIDERS: PCP Family Medicine; Referring Provider Family Medicine; Visit Provider Surgery | DX: T81.31XA Disruption of external operation (surgical) wound, not elsewhere classified, initial encounter (principal); S31.103A Unspecified open wound of abdominal wall, right lower quadrant without penetration into peritoneal cavity, initial encounter | CPT/HCPCS: 11042; 99213 ==

== ENCOUNTER → 2024-12-05 09:08 | Outpatient (CLI) | payer OTHER, SELFPAY | PROVIDERS: PCP Family Medicine; Referring Provider Family Medicine; Visit Provider Surgery | DX: S31.104A Unspecified open wound of abdominal wall, left lower quadrant without penetration into peritoneal cavity, initial encounter (principal); T81.31XA Disruption of external operation (surgical) wound, not elsewhere classified, initial encounter | CPT/HCPCS: 99213 ==

== ENCOUNTER → 2024-12-19 09:59 | Outpatient (CLI) | payer OTHER, SELFPAY | LOC: WC 10:00 | PROVIDERS: PCP Family Medicine; Referring Provider Family Medicine; Visit Provider Surgery | DX: S31.109D Unspecified open wound of abdominal wall, unspecified quadrant without penetration into peritoneal cavity, subsequent encounter (principal); T81.31XD Disruption of external operation (surgical) wound, not elsewhere classified, subsequent encounter | CPT/HCPCS: 99212; 99213 ==